=== PATIENT | male | born 1970 | race Caucasian/White ===

== ENCOUNTER 2018-09-09 15:42 | Inpatient (IN) | payer MEDICARE, MEDICAID ==
[~2018-09-09] VITALS: Ht 167.6 cm; Wt 80.0 kg
[2018-09-09 19:08] LABS: BASOPHILS % (AUTO) 0.4 % (0-1); EOSINOPHILS # (AUTO) 0.2 X10'3 (0-0.9); EOSINOPHILS % (AUTO) 1.8 % (0-6); HEMATOCRIT 42.2 % (42.0-52.0); HEMOGLOBIN 14.3 g/dl (14.0-17.9); LYMPHOCYTES # (AUTO) 2.8 X10'3 (1.1-4.8); LYMPHOCYTES % (AUTO) 26.2 % (21-51); MEAN CORPUSCULAR HEMOGLOBIN 28.8 PG (27.0-31.0); MEAN CORPUSCULAR HGB CONC 33.8 g/dL (33.0-36.5); MEAN CORPUSCULAR VOLUME 85.1 FL (78-98); MEAN PLATELET VOLUME 7.1 FL (7.4-10.4); MONOCYTES # (AUTO) 1.2 X10'3 (0-0.9); MONOCYTES % (AUTO) 10.8 % (2-12); NEUTROPHILS # (AUTO) 6.6 X10'3 (1.8-7.7); NEUTROPHILS % (AUTO) 60.8 % (42-75); PLATELET COUNT 409 X10'3 (140-440); RED BLOOD COUNT 4.95 X10'6 (4.70-6.10); RED CELL DISTRIBUTION WIDTH 13.2 % (11.5-14.5); WHITE BLOOD COUNT 10.8 X10'3 (4.5-11.0)
--- NOTE | 2018-09-09 19:14 | NUR ---
Patient produced large loose bowel movement.
[2018-09-09 19:27] LABS: ALANINE AMINOTRANSFERASE 21 U/L (12-78); ALBUMIN 3.2 G/DL (3.4-5.0); ALBUMIN/GLOBULIN RATIO 0.9 (1.1-1.5); ALKALINE PHOSPHATASE 74 IU/L (46-116); ANION GAP 11 (8-16); ASPARTATE AMINO TRANSFERASE 10 U/L (10-37); BILIRUBIN,TOTAL 0.4 MG/DL (0.1-1.0); BLOOD UREA NITROGEN 13 MG/DL (7-18); BUN/CREATININE RATIO 15.3 (5.4-32.0); CALCIUM 8.5 MG/DL (8.5-10.1); CHLORIDE 102 MMOL/L (99-107); CREATININE 0.85 MG/DL (0.60-1.10); GLUCOSE 87 MG/DL (70-104); LIPASE 106 U/L (73-393); POTASSIUM 3.7 MMOL/L (3.5-5.1); SODIUM 136 MMOL/L (135-145); TOTAL CARBON DIOXIDE 23.2 MMOL/L (24-32); TOTAL PROTEIN 6.9 G/DL (6.4-8.2); eGFR > 90 ML/MIN
[2018-09-09] MEDS ORDERED: potassium Cl 20 mEq SR tablet PO PRN ×2 (19:40)
[2018-09-09] MEDS ORDERED: magnesium 4gm in 100ml NS 100 ML IV PRN (19:40)
[2018-09-09] MEDS ORDERED: magnesium hydroxide 30ml (MOM) UD suspension PO PRN (19:40)
[2018-09-09] MEDS ORDERED: ondansetron/PF 4mg/2ml inj IV PRN (19:40)
[2018-09-09] MEDS ORDERED: mag hydrox/Alum hydrox/simeth 30ml oral suspension PO PRN (19:40)
[2018-09-09] MEDS ORDERED: acetaminophen 325mg tablet PO PRN ×2 (19:40)
[2018-09-09] MEDS ORDERED: magnesium 2GM in 50ml NS 50 ML IV PRN (19:40)
[2018-09-09] MEDS ORDERED: magnesium Cl slow-release 64mg tablet PO PRN (19:40)
[2018-09-09] MEDS ORDERED: potassium Cl 40MEQ/NS 500ml 500 ML IV PRN ×2 (19:40)
[2018-09-09] MEDS: normal saline 1000ml 1,000 ML IV SCH (20:02)
--- NOTE | 2018-09-09 20:26 | NUR ---
Dr. Moss paged about an order for the PO contrast for overnight prep. He gave a telephone order for it.
[2018-09-09] MEDS ORDERED: diatr meglu/diatrizoate 30ml oral sol.-(3 dose) bottle PO ONE (20:30)
[2018-09-09] MEDS: morphine 2 MG/ML inj. syringe IV PRN (20:31)
[2018-09-09] MEDS ORDERED: NO HOME MEDS (20:33)
[2018-09-09] MEDS ORDERED: diatrozoate meglu/diatrozoate sod (37% iodine) 120ML oral solution PO ONE (21:00)
[2018-09-09] MEDS ORDERED: pantoprazole 40 MG vial IV ONE (21:10)
[2018-09-09] MEDS ORDERED: ondansetron/PF 4mg/2ml inj IV ONE (21:15)
--- NOTE | 2018-09-09 22:05 | NUR ---
Previously placed NG tube had become clogged and would not drain. New 16 fr NG tube placed with no difficulty and 200mL gastric contents out.
--- NOTE | 2018-09-09 22:30 | NUR ---
Patient in room [facility]. I have received report from KEM Rodriguez and had the opportunity to ask questions and assume patient care.
[2018-09-09] MEDS ORDERED: diphenhydrAMINE 50 mg/ml inj IV ONE (22:45)
[2018-09-09 23:00] VITALS: BP 152/93
[2018-09-09 23:52] VITALS: BP 152/93
[2018-09-10] MEDS: normal saline 1000ml 1,000 ML IV SCH ×3 (05:46→23:45)
--- NOTE | 2018-09-10 06:03 | NUR ---
Problems reprioritized. Patient report given, questions answered & plan of care reviewed with KEM Madison.
[2018-09-10 06:20] LABS: BASOPHILS # (AUTO) 0.1 X10'3 (0-0.2); BASOPHILS % (AUTO) 0.6 % (0-1); EOSINOPHILS # (AUTO) 0.3 X10'3 (0-0.9); EOSINOPHILS % (AUTO) 3.3 % (0-6); HEMATOCRIT 39.3 % (42.0-52.0); HEMOGLOBIN 13.4 g/dl (14.0-17.9); LYMPHOCYTES # (AUTO) 2.9 X10'3 (1.1-4.8); LYMPHOCYTES % (AUTO) 28.5 % (21-51); MEAN CORPUSCULAR HEMOGLOBIN 29.3 PG (27.0-31.0); MEAN CORPUSCULAR HGB CONC 34.2 g/dL (33.0-36.5); MEAN CORPUSCULAR VOLUME 85.7 FL (78-98); MEAN PLATELET VOLUME 7.1 FL (7.4-10.4); MONOCYTES # (AUTO) 1.1 X10'3 (0-0.9); MONOCYTES % (AUTO) 10.6 % (2-12); NEUTROPHILS # (AUTO) 5.8 X10'3 (1.8-7.7); PLATELET COUNT 385 X10'3 (140-440); RED BLOOD COUNT 4.58 X10'6 (4.70-6.10); RED CELL DISTRIBUTION WIDTH 13.1 % (11.5-14.5); WHITE BLOOD COUNT 10.2 X10'3 (4.5-11.0)
[2018-09-10 06:28] LABS: ALBUMIN 2.9 G/DL (3.4-5.0); ANION GAP 10 (8-16); BLOOD UREA NITROGEN 14 MG/DL (7-18); BUN/CREATININE RATIO 14.7 (5.4-32.0); CALCIUM 8.3 MG/DL (8.5-10.1); CHLORIDE 104 MMOL/L (99-107); CREATININE 0.95 MG/DL (0.60-1.10); GLUCOSE 85 MG/DL (70-104); POTASSIUM 3.4 MMOL/L (3.5-5.1); SODIUM 138 MMOL/L (135-145); TOTAL CARBON DIOXIDE 23.9 MMOL/L (24-32); eGFR 84 ML/MIN
--- NOTE | 2018-09-10 06:50 | NUR ---
Patient in room [facility]. I have received report from Marcial BROWNLEE and had the opportunity to ask questions and assume patient care.
[2018-09-10] MEDS ORDERED: LIDOcaine 1% 30ml vial 5 ML in potassium Cl 40MEQ/NS 500ml 500 ML IV PRN (07:10)
[2018-09-10 07:37] VITALS: BP 146/99
[2018-09-10] MEDS: enoxaparin 40mg/0.4ml syringe SQ SCH (08:00)
[2018-09-10] MEDS: K and/or MAG REPLACEMENT MC SCH (08:00)
[2018-09-10] MEDS: famotidine/PF 10 mg/ml inj IV SCH ×2 (08:54→20:14)
[2018-09-10] MEDS: metroNIDAZOLE-Flagyl 500mg/NS 100 ML IV SCH ×3 (08:55→23:45)
[2018-09-10] MEDS: diatr meglu/diatrizoate 30ml oral sol.-(3 dose) bottle PO SCH ×2 (08:55→12:43)
[2018-09-10] MEDS: CefTRIAXone/D5W-Rocephin 1gm 50 ML IV SCH (10:57)
[2018-09-10 11:00] VITALS: BP 151/93
[2018-09-10] MEDS ORDERED: iohexol 300mg/ml 100ml inj. ONE (11:35)
--- NOTE | 2018-09-10 13:41 | NUR ---
Received call from Radiologist Maryan : Concerns for possible internal hernia constrast did go to colon and rectum but there was bowel Distention. Dr Kurtz aware. Per Dr Kurtz contact Dr Tapia and advise she might want to contact Dr Cohen.
[2018-09-10] MEDS: morphine 2 MG/ML inj. syringe IV PRN ×2 (14:02→20:24)
[2018-09-10] MEDS ORDERED: ALPRAZolam 0.25mg tablet PO ONE (17:45)
[2018-09-10] MEDS: nicotine 14mg patch - 24hr TD SCH (17:57)
--- NOTE | 2018-09-10 18:40 | NUR ---
Patient in room [facility]. I have received report from Gricelda BROWNLEE and had the opportunity to ask questions and assume patient care. Patient resting on left side respirations even, at bedside, will continue to monitor.
--- NOTE | 2018-09-10 18:44 | NUR ---
Problems reprioritized. Patient report given, questions answered & plan of care reviewed with Bianca BROWNLEE.
[2018-09-10 20:00] VITALS: BP 153/88
[2018-09-11] VITALS: BP 139/90
[2018-09-11] MEDS: morphine 2 MG/ML inj. syringe IV PRN ×4 (01:42→19:18)
[2018-09-11 06:12] LABS: BASOPHILS # (AUTO) 0.1 X10'3 (0-0.2); BASOPHILS % (AUTO) 0.8 % (0-1); EOSINOPHILS # (AUTO) 0.3 X10'3 (0-0.9); EOSINOPHILS % (AUTO) 3.7 % (0-6); HEMATOCRIT 39.6 % (42.0-52.0); HEMOGLOBIN 13.7 g/dl (14.0-17.9); LYMPHOCYTES # (AUTO) 2.4 X10'3 (1.1-4.8); LYMPHOCYTES % (AUTO) 27.3 % (21-51); MEAN CORPUSCULAR HEMOGLOBIN 29.4 PG (27.0-31.0); MEAN CORPUSCULAR HGB CONC 34.7 g/dL (33.0-36.5); MEAN CORPUSCULAR VOLUME 84.8 FL (78-98); MEAN PLATELET VOLUME 6.9 FL (7.4-10.4); MONOCYTES # (AUTO) 0.9 X10'3 (0-0.9); MONOCYTES % (AUTO) 9.8 % (2-12); NEUTROPHILS # (AUTO) 5.1 X10'3 (1.8-7.7); NEUTROPHILS % (AUTO) 58.4 % (42-75); PLATELET COUNT 417 X10'3 (140-440); RED BLOOD COUNT 4.67 X10'6 (4.70-6.10); RED CELL DISTRIBUTION WIDTH 13.1 % (11.5-14.5); WHITE BLOOD COUNT 8.8 X10'3 (4.5-11.0)
[2018-09-11 06:38] LABS: ALBUMIN 2.9 G/DL (3.4-5.0); ANION GAP 10 (8-16); BLOOD UREA NITROGEN 17 MG/DL (7-18); BUN/CREATININE RATIO 17.9 (5.4-32.0); CALCIUM 8.1 MG/DL (8.5-10.1); CHLORIDE 103 MMOL/L (99-107); CREATININE 0.95 MG/DL (0.60-1.10); GLUCOSE 76 MG/DL (70-104); MAGNESIUM 1.9 MG/DL (1.5-2.4); POTASSIUM 3.4 MMOL/L (3.5-5.1); SODIUM 137 MMOL/L (135-145); TOTAL CARBON DIOXIDE 24.1 MMOL/L (24-32); eGFR 84 ML/MIN
--- NOTE | 2018-09-11 06:47 | NUR ---
Problems reprioritized. Patient report given, questions answered & plan of care reviewed with Zee BROWNLEE. Resting eyes closed respirations even
[2018-09-11 07:00] VITALS: BP 156/94
[2018-09-11] MEDS: metroNIDAZOLE-Flagyl 500mg/NS 100 ML IV SCH ×3 (07:20→23:11)
[2018-09-11] MEDS: famotidine/PF 10 mg/ml inj IV SCH ×2 (07:20→19:17)
[2018-09-11] MEDS: nicotine 14mg patch - 24hr TD SCH (07:21)
[2018-09-11] MEDS: enoxaparin 40mg/0.4ml syringe SQ SCH (08:00)
[2018-09-11] MEDS: K and/or MAG REPLACEMENT MC SCH (08:44)
[2018-09-11] MEDS ORDERED: LIDOcaine 1% 30ml vial 5 ML in potassium Cl 40MEQ/NS 500ml 500 ML IV ONE (08:55)
[2018-09-11] MEDS: CefTRIAXone/D5W-Rocephin 1gm 50 ML IV SCH (09:21)
[2018-09-11 11:00] VITALS: BP 150/98
[2018-09-11] MEDS: normal saline 1000ml 1,000 ML IV SCH ×2 (11:40→19:06)
--- NOTE | 2018-09-11 13:58 | NUR ---
REMOVED NG TUBE, PT TOLERATED WELL
--- NOTE | 2018-09-11 18:25 | NUR ---
Problems reprioritized. Patient report given, questions answered & plan of care reviewed with EVA BROWNLEE.
--- NOTE | 2018-09-11 18:32 | NUR ---
Pt up walking, and requesting a shower. Addendum: 09/11/18 at 1833 by Nely Clinton RN Amended: Links added.
[2018-09-11 19:00] VITALS: BP 166/92
[2018-09-11] MEDS: lactobacillus rhamnosus 10,000 MMU CELLS/CAPSULE PO SCH (19:18)
[2018-09-11] MEDS: hydrALAZINE 20mg/ml inj. IV PRN (20:37)
[2018-09-11] MEDS: zolpidem 5mg tablet PO PRN (23:11)
[2018-09-12] VITALS: BP 145/86
--- NOTE | 2018-09-12 06:31 | NUR ---
Problems reprioritized. Patient report given, questions answered & plan of care reviewed with Anali BROWNLEE. Addendum: 09/12/18 at 0631 by Nely Clinton RN Amended: Links added.
[2018-09-12 06:42] LABS: BASOPHILS # (AUTO) 0.1 X10'3 (0-0.2); BASOPHILS % (AUTO) 0.7 % (0-1); EOSINOPHILS # (AUTO) 0.3 X10'3 (0-0.9); EOSINOPHILS % (AUTO) 3.8 % (0-6); HEMATOCRIT 39.6 % (42.0-52.0); HEMOGLOBIN 13.8 g/dl (14.0-17.9); LYMPHOCYTES # (AUTO) 2.1 X10'3 (1.1-4.8); LYMPHOCYTES % (AUTO) 24.9 % (21-51); MEAN CORPUSCULAR HEMOGLOBIN 29.3 PG (27.0-31.0); MEAN CORPUSCULAR HGB CONC 34.9 g/dL (33.0-36.5); MEAN PLATELET VOLUME 6.6 FL (7.4-10.4); MONOCYTES % (AUTO) 11.7 % (2-12); NEUTROPHILS # (AUTO) 4.9 X10'3 (1.8-7.7); NEUTROPHILS % (AUTO) 58.9 % (42-75); PLATELET COUNT 442 X10'3 (140-440); RED BLOOD COUNT 4.72 X10'6 (4.70-6.10); RED CELL DISTRIBUTION WIDTH 13.2 % (11.5-14.5); WHITE BLOOD COUNT 8.3 X10'3 (4.5-11.0)
[2018-09-12 07:00] VITALS: BP 159/92
[2018-09-12 07:06] LABS: ANION GAP 9 (8-16); BLOOD UREA NITROGEN 12 MG/DL (7-18); BUN/CREATININE RATIO 10.8 (5.4-32.0); CALCIUM 8.6 MG/DL (8.5-10.1); CHLORIDE 104 MMOL/L (99-107); CREATININE 1.11 MG/DL (0.60-1.10); GLUCOSE 100 MG/DL (70-104); POTASSIUM 3.8 MMOL/L (3.5-5.1); SODIUM 138 MMOL/L (135-145); TOTAL CARBON DIOXIDE 25.5 MMOL/L (24-32); eGFR 70 ML/MIN
[2018-09-12] MEDS: K and/or MAG REPLACEMENT MC SCH (08:00)
[2018-09-12] MEDS: normal saline 1000ml 1,000 ML IV SCH ×2 (08:12→17:40)
[2018-09-12] MEDS: CefTRIAXone/D5W-Rocephin 1gm 50 ML IV SCH (08:16)
[2018-09-12] MEDS: famotidine/PF 10 mg/ml inj IV SCH (08:18)
[2018-09-12] MEDS: nicotine 14mg patch - 24hr TD SCH (08:22)
[2018-09-12] MEDS: enoxaparin 40mg/0.4ml syringe SQ SCH (08:24)
[2018-09-12] MEDS: lactobacillus rhamnosus 10,000 MMU CELLS/CAPSULE PO SCH ×2 (08:25→20:30)
[2018-09-12] MEDS: metroNIDAZOLE-Flagyl 500mg/NS 100 ML IV SCH (09:00)
--- NOTE | 2018-09-12 12:02 | NUR ---
pt told aide he was going to get some sun, pt has left floor with . i will talk to patient about not leaving floor without my knowledge when he gets back. pt very ambulatory and stable, likely not a risk being off of floor.
[2018-09-12] MEDS: lisinopril 5mg tablet PO SCH (13:32)
[2018-09-12] MEDS: metroNIDAZOLE 500mg tablet PO SCH ×2 (15:51→23:04)
[2018-09-12 15:55] VITALS: BP 157/95
--- NOTE | 2018-09-12 18:03 | NUR ---
Problems reprioritized. Patient report given, questions answered & plan of care reviewed with DARIO BROWNLEE .
--- NOTE | 2018-09-12 18:30 | NUR ---
Patient in room [facility]. I have received report from aimee Saunders and had the opportunity to ask questions and assume patient care.
[2018-09-12] MEDS: morphine 2 MG/ML inj. syringe IV PRN (18:57)
[2018-09-12 19:00] VITALS: BP 151/96
[2018-09-12] MEDS: famotidine 20mg tablet PO SCH (20:30)
[2018-09-12] MEDS: hydrALAZINE 20mg/ml inj. IV PRN (20:41)
[2018-09-12] MEDS: zolpidem 5mg tablet PO PRN (22:57)
[2018-09-13] VITALS: BP 147/82
[2018-09-13] MEDS: normal saline 1000ml 1,000 ML IV SCH ×2 (02:38→04:52)
[2018-09-13 06:03] LABS: BASOPHILS # (AUTO) 0.1 X10'3 (0-0.2); BASOPHILS % (AUTO) 0.7 % (0-1); EOSINOPHILS # (AUTO) 0.4 X10'3 (0-0.9); EOSINOPHILS % (AUTO) 3.8 % (0-6); LYMPHOCYTES # (AUTO) 2.3 X10'3 (1.1-4.8); LYMPHOCYTES % (AUTO) 25.2 % (21-51); MEAN CORPUSCULAR HEMOGLOBIN 28.8 PG (27.0-31.0); MEAN CORPUSCULAR HGB CONC 34.1 g/dL (33.0-36.5); MEAN CORPUSCULAR VOLUME 84.6 FL (78-98); MEAN PLATELET VOLUME 6.9 FL (7.4-10.4); MONOCYTES # (AUTO) 1.1 X10'3 (0-0.9); MONOCYTES % (AUTO) 12.4 % (2-12); NEUTROPHILS # (AUTO) 5.4 X10'3 (1.8-7.7); NEUTROPHILS % (AUTO) 57.9 % (42-75); PLATELET COUNT 494 X10'3 (140-440); RED BLOOD COUNT 4.85 X10'6 (4.70-6.10); RED CELL DISTRIBUTION WIDTH 13.2 % (11.5-14.5); WHITE BLOOD COUNT 9.3 X10'3 (4.5-11.0)
[2018-09-13 06:12] LABS: ALBUMIN 3.1 G/DL (3.4-5.0); ANION GAP 9 (8-16); BLOOD UREA NITROGEN 13 MG/DL (7-18); BUN/CREATININE RATIO 13.5 (5.4-32.0); CALCIUM 8.6 MG/DL (8.5-10.1); CHLORIDE 103 MMOL/L (99-107); CREATININE 0.96 MG/DL (0.60-1.10); GLUCOSE 107 MG/DL (70-104); MAGNESIUM 1.9 MG/DL (1.5-2.4); POTASSIUM 3.9 MMOL/L (3.5-5.1); SODIUM 138 MMOL/L (135-145); TOTAL CARBON DIOXIDE 25.8 MMOL/L (24-32); eGFR 83 ML/MIN
--- NOTE | 2018-09-13 06:51 | NUR ---
Problems reprioritized. Patient report given, questions answered & plan of care reviewed with Delia BROWNLEE.
[2018-09-13 07:00] VITALS: BP 142/88
[2018-09-13] MEDS: K and/or MAG REPLACEMENT MC SCH (08:00)
[2018-09-13] MEDS: CefTRIAXone/D5W-Rocephin 1gm 50 ML IV SCH (09:04)
[2018-09-13] MEDS: lisinopril 5mg tablet PO SCH (09:05)
[2018-09-13] MEDS: enoxaparin 40mg/0.4ml syringe SQ SCH (09:05)
[2018-09-13] MEDS: lactobacillus rhamnosus 10,000 MMU CELLS/CAPSULE PO SCH (09:05)
[2018-09-13] MEDS: famotidine 20mg tablet PO SCH (09:05)
[2018-09-13] MEDS: metroNIDAZOLE 500mg tablet PO SCH (09:05)
[2018-09-13] MEDS: nicotine 14mg patch - 24hr TD SCH (09:06)
[2018-09-13] MEDS ORDERED: LISI-642 PO (10:31)
--- NOTE | 2018-09-13 12:10 | NUR ---
Patient discharged. PIV removed and cath tip intact. Education given and patient verbalized understanding. Patient was ambulated down with staff.
== END 2018-09-13 12:10 | disposition home or self-care (01) | DRG 390 ==
LOC: ER 15:43 → SUR 3N 19:50 → CMPBEDREQ 09-11 15:12 → SUR 3N 09-11 23:01
PROVIDERS: ADMIT Hospitalist; ATTEND Internal Medicine
PROC: 0D9670Z Drainage of Stomach with Drainage Device, Via Natural or Artificial Opening (ICD-10-PCS; principal; 2018-09-09)
PROC: BW211ZZ Computerized Tomography (CT Scan) of Abdomen and Pelvis using Low Osmolar Contrast (ICD-10-PCS; 2018-09-10)
DX: K56.609 Unspecified intestinal obstruction, unspecified as to partial versus complete obstruction (principal); E78.5 Hyperlipidemia, unspecified; I10 Essential (primary) hypertension; F41.9 Anxiety disorder, unspecified; F12.90 Cannabis use, unspecified, uncomplicated; E78.00 Pure hypercholesterolemia, unspecified; F17.200 Nicotine dependence, unspecified, uncomplicated; Z88.8 Allergy status to other drugs, medicaments and biological substances; Z91.040 Latex allergy status; Z86.14 Personal history of Methicillin resistant Staphylococcus aureus infection; Z71.6 Tobacco abuse counseling; Z91.048 Other nonmedicinal substance allergy status
CPT/HCPCS: 36415; 71045; 74176; 74177; 80048; 80053; 83690; 83735; 85025; 85610; 87070; 99285; C9113; G0378; J0360; J0696; J1200; J1650; J2270; J2405; J3480; J3490; J7030; Q9963; Q9967